=== PATIENT | male | born 1985 | race African-American/Black ===

== ENCOUNTER 2016-11-05 23:00 | Emergency (ER) | payer OTHER ==
[~2016-11-05 23:00] MED LIST: ALBUTEROL 0.5ML INH; ALBUTEROL17 GM INH; EPIPEN0.3 MG/0.1 IM; IBUPROFEN800 MG PO; MEDROL DOSEPAK4 MG PO; MEDROL PO; NORVASC; PREDNISONE PO; PROAIR INH; SINGULAIR PO; VICODIN 5/1 TAB 5/50 PO; ZYRTEC PO; [UNRECOGNIZED DRUG - OTHER] OP
[2016-11-05 23:03] LABS: INFLUENZA A POS (NEG); INFLUENZA B NEG (NEG)
== END 2016-11-05 23:33 | disposition home or self-care (01) ==
LOC: SED 23:00
PROVIDERS: Emergency Medicine
DX: J10.1 Influenza due to other identified influenza virus with other respiratory manifestations (principal); I10 Essential (primary) hypertension; J45.909 Unspecified asthma, uncomplicated; Z98.890 Other specified postprocedural states; Z91.010 Allergy to peanuts
CPT/HCPCS: 87651; 87804; 99283